=== PATIENT | male | born 1955 | race Caucasian/White ===

== ENCOUNTER → 2019-06-10 | Outpatient (CLI) | payer OTHER | END | disposition home or self-care (01) | LOC: PLD 12:32 → LAB SHORT 12:32 | DX: D22.5 Melanocytic nevi of trunk (principal) | CPT/HCPCS: 88305 ==

== ENCOUNTER 2019-12-17 09:17 | Inpatient (IN) | payer OTHER ==
[~2019-12-17] VITALS: Ht 175.3 cm; Wt 115.0 kg
[2019-12-17 11:05] LABS: Alanine Aminotransfer (ALT/SGP 28 U/L (12-78); Albumin/Globulin Ratio 1.3 (0.8-1.8); Alk Phos 39 U/L (50-136); Anion Gap 7 mmol/L (6-16); Aspartate Aminotrans (AST/SGOT 15 U/L (12-37); Bilirubin, Total 0.7 mg/dL (0.1-1.0); Blood Urea Nitrogen 11 mg/dL (8-24); CO2, Blood 26 mmol/L (21-32); Calcium, Blood 9.1 mg/dL (8.5-10.1); Chloride, Blood 110 mmol/L (98-108); Creatinine, Blood 0.92 mg/dL (0.60-1.20); Glomerular Filtration Rate >60 (60-); Glucose, Blood 114 mg/dL (70-99); Potassium, Blood 3.6 mmol/L (3.5-5.5); Sodium, Blood 143 mmol/L (136-145); Troponin I 0.054 ng/mL (0.000-0.040)
[2019-12-17 12:33] LABS: PCO2 Arterial 40.3 mmHg (35-45); PO2 Arterial 67.1 mmHg (80-100); pH Blood Arterial 7.38 (7.35-7.45)
[2019-12-17] MEDS ORDERED: Vitamin D2000 UNIT PO (13:21)
[2019-12-17] MEDS ORDERED: AMLO10 PO (13:21)
[2019-12-17] MEDS ORDERED: LOSARTAN POTAS100 MG PO (13:21)
[2019-12-17] MEDS ORDERED: OMEP20ER PO (13:21)
[2019-12-17] MEDS ORDERED: Crestor20 MG PO (13:22)
[2019-12-17] MEDS ORDERED: Coreg12.5 MG PO (13:22)
[2019-12-17] MEDS ORDERED: CLOP75 PO (13:22)
[2019-12-17] MEDS ORDERED: STIOLTO RESPIMAT4 G1 INH (13:22)
[2019-12-17] MEDS ORDERED: AMIT10 PO (13:23)
[2019-12-17] MEDS ORDERED: QVAR REDIHALE10.6 G2 INH (13:23)
[2019-12-17] MEDS ORDERED: Aspirin EC81 MG PO (13:23)
[2019-12-17 15:01] LABS: BASOPHILS ABSOLUTE AUTO 0.04 K/mm3 (0.00-0.23); BASOPHILS PERCENT AUTO 1 % (0-2); EOSINOPHILS PERCENT AUTO 8 % (0-6); Hematocrit 41.7 % (37.0-53.0); Hemoglobin 14.8 g/dL (13.5-17.5); IMMATURE GRAN ABSOLUTE AUTO 0.01 K/mm3 (0.00-0.10); IMMATURE GRAN PERCENT AUTO 0 % (0-1); LYMPHOCYTES ABSOLUTE AUTO 1.53 K/mm3 (0.84-5.20); LYMPHOCYTES PERCENT AUTO 23 % (21-46); MONOCYTES ABSOLUTE AUTO 0.57 K/mm3 (0.16-1.47); MONOCYTES PERCENT AUTO 9 % (4-13); Mean Corpuscular HGB 32.9 pg (26.0-34.0); Mean Corpuscular HGB Conc 35.5 g/dL (31.5-36.5); Mean Corpuscular Volume 93 fL (80-100); Mean Platelet Volume 9.8 fL (9.1-12.4); NEUTROPHILS ABSOLUTE AUTO 3.89 K/mm3 (1.96-9.15); NEUTROPHILS PERCENT AUTO 60 % (41-73); Platelet Count 151 K/mm3 (150-400); RDW Coefficient Variation 12.2 % (11.7-14.2); RDW Standard Deviation 41.1 fL (35.1-46.3); White Blood Cell Count 6.54 K/mm3 (4.00-11.30)
[2019-12-17 15:02] LABS: International Normalized Ratio 0.96; Prothrombin Time Results 10.3 Sec (9.7-11.5)
[2019-12-17] MEDS ORDERED: IPRAT-ALBUT 0.5-3 ML INH (15:21)
[2019-12-17] MEDS ORDERED: STIOLTO RESPIMAT4 G1 (15:22)
[2019-12-17] MEDS ORDERED: QVAR REDIHALE10.6 G2 (15:22)
--- NOTE | 2019-12-17 17:00 | NUR ---
echocardiogram completed
--- NOTE | 2019-12-17 18:35 | NUR ---
SHIFT NOTE PT ARRIVED THIS AFTERNOON FROM ER WITH CHEST PRESSURE. PT RECIEVED NITRO IN ER X2, WHICH NEARLY RESOLVED HIS PAIN BUT HAD CAUSED HYPOTENSION. PT ARRIVES A/O X4, ANSWERING QUESTIONS APPOPRIATELY IN FULL SENTENCES. VSS. PT IS MEDICATED ON ARRIVAL PER EMAR. SKIN PWD AND INTACT. PT STS THAT PAIN BEGAN AFTER SEVERE BOUT OF SOB, REPORTS THAT SOB AND CP HAVE BEEN ITNERMITTENT FOR THE LAST 7+ DAYS. PT WITH HX OF STENTS PLACEMENT X3. DR CRUZ HAS BEEN IN TO SEE PT, THERE WILL NOT BE A CARDIO CONSULT UNTIL AFTER REPEAT TROPONINS HAVE BEEN OBTAINED PER DR ALEXANDER, OBSERVE PT UNTIL THEN
--- NOTE | 2019-12-17 20:29 | NUR ---
UPDATE DR ANN NOTIFIED OF PATIENT'S 09/03 CHEST PAIN AND PATIENT'S REQUEST FOR BOWEL CARE. ORDERS RECEIVED.
[2019-12-17 23:13] LABS: Adenovirus Not Detected (NOT DETECT); Bordetella pertussis Not Detected (NOT DETECT); Chlamydophila pneumoniae Not Detected (NOT DETECT); Coronavirus 229E Not Detected (NOT DETECT); Coronavirus HKU1 Not Detected (NOT DETECT); Coronavirus NL63 Not Detected (NOT DETECT); Coronavirus OC43 Not Detected (NOT DETECT); Human Metapneumovirus Not Detected (NOT DETECT); Human Rhinovirus/Enterovirus Not Detected (NOT DETECT); Influenza A/2009-H1 Not Detected (NOT DETECT); Influenza A/H1 Not Detected (NOT DETECT); Influenza A/H3 Not Detected (NOT DETECT); Influenza B Not Detected (NOT DETECT); Mycoplasma pneumoniae Not Detected (NOT DETECT); Parainfluenza Virus 1 Not Detected (NOT DETECT); Parainfluenza Virus 2 Not Detected (NOT DETECT); Parainfluenza Virus 3 Not Detected (NOT DETECT); Parainfluenza Virus 4 Not Detected (NOT DETECT); Respiratory Syncytial Virus Not Detected (NOT DETECT); SARS-Cov-2 (COVID-19), BioFire Not Detected (NOT DETECT)
[2019-12-18 04:30] LABS: BASOPHILS PERCENT AUTO 0 % (0-2); EOSINOPHILS PERCENT AUTO 0 % (0-6); Hematocrit 41.5 % (37.0-53.0); Hemoglobin 14.5 g/dL (13.5-17.5); IMMATURE GRAN ABSOLUTE AUTO 0.01 K/mm3 (0.00-0.10); IMMATURE GRAN PERCENT AUTO 0 % (0-1); LYMPHOCYTES ABSOLUTE AUTO 0.56 K/mm3 (0.84-5.20); LYMPHOCYTES PERCENT AUTO 10 % (21-46); MONOCYTES ABSOLUTE AUTO 0.05 K/mm3 (0.16-1.47); MONOCYTES PERCENT AUTO 1 % (4-13); Mean Corpuscular HGB 32.4 pg (26.0-34.0); Mean Corpuscular HGB Conc 34.9 g/dL (31.5-36.5); Mean Corpuscular Volume 93 fL (80-100); NEUTROPHILS ABSOLUTE AUTO 5.13 K/mm3 (1.96-9.15); NEUTROPHILS PERCENT AUTO 89 % (41-73); Platelet Count 151 K/mm3 (150-400); RDW Coefficient Variation 12.1 % (11.7-14.2); RDW Standard Deviation 41.1 fL (35.1-46.3); Red Blood Cell Count 4.47 M/mm3 (4.30-5.90); White Blood Cell Count 5.75 K/mm3 (4.00-11.30)
[2019-12-18 04:50] LABS: Alanine Aminotransfer (ALT/SGP 26 U/L (12-78); Albumin, Blood 3.9 g/dL (3.4-5.0); Albumin/Globulin Ratio 1.3 (0.8-1.8); Alk Phos 40 U/L (50-136); Anion Gap 4 mmol/L (6-16); Aspartate Aminotrans (AST/SGOT 8 U/L (12-37); Bilirubin, Total 0.7 mg/dL (0.1-1.0); Blood Urea Nitrogen 13 mg/dL (8-24); Bun/Creatinine Ratio 15.2 (12.0-20.0); CO2, Blood 28 mmol/L (21-32); Calcium, Blood 9.4 mg/dL (8.5-10.1); Chloride, Blood 111 mmol/L (98-108); Creatinine, Blood 0.85 mg/dL (0.60-1.20); Globulin, Blood 3.1 g/dL (2.2-4.0); Glomerular Filtration Rate >60 (60-); Glucose, Blood 144 mg/dL (70-99); Magnesium, Blood 2.1 mg/dL (1.6-2.4); Phosphorus, Blood 1.7 mg/dL (2.5-4.9); Potassium, Blood 4.2 mmol/L (3.5-5.5); Sodium, Blood 143 mmol/L (136-145)
--- NOTE | 2019-12-18 05:40 | NUR ---
SHIFT SUMMARY PT SLEPT T/O SHIFT. PT ALERT AND ORIENTED X 4. PT REPORTS PAIN IN THE ABDOMEN AND CHEST. PHYSICIAN NOTIFIED OF PAIN. PAIN MEDICATIONS PRESCRIBED. PT REFUSED. PT FELT THOUGH PAIN IN ABDOMEN WAS D/T CONSTIPATION. PHYSICIAN NOTIFIED. PT PRESCRIBED BOWEL CARE REGIMEN. PT DID NOT HAVE BM T/O SHIFT. BP STABLE. HR STABLE. WILL CONTINUE TO MONITOR UNTIL REPORT GIVEN TO DAYSHIFT RN.
--- NOTE | 2019-12-18 18:23 | NUR ---
SUMMARY: NO ACUTE CHANGE TODAY. VSS, NO CHANGE IN TELE. PT HAS DENIED CHEST PAIN, REPORTS "FLUTTERS" AT TIMES. REPORTS PRESSURE AT ABDMD AWARE.BOWEL CARE AND PRUNE JUICE GIVEN. NO BM TODAY. PT IS A/O, INDEP IN ROOM. POSSIBLE DISCHARGE TOMORROW. WILL PASS REPORT TO FAUSTINA RN.
[2019-12-19 04:56] LABS: BASOPHILS ABSOLUTE AUTO 0.01 K/mm3 (0.00-0.23); BASOPHILS PERCENT AUTO 0 % (0-2); EOSINOPHILS PERCENT AUTO 0 % (0-6); Hematocrit 41.4 % (37.0-53.0); Hemoglobin 14.5 g/dL (13.5-17.5); IMMATURE GRAN ABSOLUTE AUTO 0.04 K/mm3 (0.00-0.10); IMMATURE GRAN PERCENT AUTO 0 % (0-1); LYMPHOCYTES ABSOLUTE AUTO 0.71 K/mm3 (0.84-5.20); LYMPHOCYTES PERCENT AUTO 7 % (21-46); MONOCYTES ABSOLUTE AUTO 0.23 K/mm3 (0.16-1.47); MONOCYTES PERCENT AUTO 2 % (4-13); Mean Corpuscular HGB 32.3 pg (26.0-34.0); Mean Corpuscular Volume 92 fL (80-100); Mean Platelet Volume 9.7 fL (9.1-12.4); NEUTROPHILS PERCENT AUTO 91 % (41-73); Platelet Count 154 K/mm3 (150-400); RDW Coefficient Variation 12.2 % (11.7-14.2); RDW Standard Deviation 41.2 fL (35.1-46.3); Red Blood Cell Count 4.49 M/mm3 (4.30-5.90); White Blood Cell Count 10.49 K/mm3 (4.00-11.30)
[2019-12-19 05:15] LABS: Anion Gap 6 mmol/L (6-16); Blood Urea Nitrogen 14 mg/dL (8-24); Bun/Creatinine Ratio 16.1 (12.0-20.0); CO2, Blood 28 mmol/L (21-32); Calcium, Blood 9.4 mg/dL (8.5-10.1); Chloride, Blood 109 mmol/L (98-108); Creatinine, Blood 0.87 mg/dL (0.60-1.20); Glomerular Filtration Rate >60 (60-); Glucose, Blood 161 mg/dL (70-99); Potassium, Blood 4.1 mmol/L (3.5-5.5); Sodium, Blood 143 mmol/L (136-145)
--- NOTE | 2019-12-19 06:14 | NUR ---
shift summary pt rested through night ao room air abd distention - given miralax x2 - no bm. pt feels distended and like he has to go, but cant get relief. passing gas, no nausea. encouraged ambulation. voiding to urinal no c/o pain vss call light within reach, bed in lowest position. will continue to monitor.
--- NOTE | 2019-12-19 08:00 | NUR ---
pt laying in bed eating breakfast, a/ox3, pleasant and cooperative with care, follows commands well, denies pain, just some pressure in his abd, states no bm for 5 days, lungs are clear in upper [place], dim with exp wheezing to bases, resp even and unlabored, no cough noted, but pt reports occ cough with clear phlem, hrr, tele in place running st per monitor, see strip, no edema noted, ppp+2, cap refill <3sec, vs stable, afebrile, iv site is clear and patent, btx4, abd large round firm, voids via urinal, skin c/w/d, pilo alexander, call light in reach, started him on mag citrate, will give enema if no results.
--- NOTE | 2019-12-19 10:30 | NUR ---
pt had no results from mag citrate, gave fleets enema, asked him to lay with enema in for a couple minutes before getting up to br. tolerated well, call light in reach.
[2019-12-19] MEDS ORDERED: METO25ER PO (12:08)
[2019-12-19] MEDS ORDERED: AZIT500 PO (12:09)
[2019-12-19] MEDS ORDERED: DELTASONE20 MG PO (12:10)
--- NOTE | 2019-12-19 14:00 | NUR ---
PT HAS HAD SEVERAL BM'S, HE IS BEING DISCHARGED TO HOME, WENT OVER HIS INSTRUCTIONS, HE VERBALIZED UNDERSTANDING, NEW MEDS WERE CALLED INTO [facility] IN [facility], IV REMOVED INTACT, LEFT VIA WHEELCHAIR WITH CURRENCY MACHINE OPERATOR IN ATTENDENCE WITH ALL HIS BELONGINGS.
== END 2019-12-19 14:24 | disposition home or self-care (01) | DRG 189 ==
LOC: ER 09:17 → PCU 12:28
PROVIDERS: Family Medicine; Physician Assistant; ADMIT Hospitalist
DX: J96.01 Acute respiratory failure with hypoxia (principal); J44.1 Chronic obstructive pulmonary disease with (acute) exacerbation; I25.10 Atherosclerotic heart disease of native coronary artery without angina pectoris; Z95.5 Presence of coronary angioplasty implant and graft; G47.33 Obstructive sleep apnea (adult) (pediatric); E78.5 Hyperlipidemia, unspecified; K59.00 Constipation, unspecified; Z87.891 Personal history of nicotine dependence; R79.89 Other specified abnormal findings of blood chemistry; I50.9 Heart failure, unspecified; I11.0 Hypertensive heart disease with heart failure
CPT/HCPCS: 0202U; 36415; 36600; 71045; 80048; 80053; 82803; 83735; 83880; 84100; 84484; 85025; 85610; 93005; 93010; 93306; 94640; 94760; 99285-25; A9270-GY; J0696; J1650; J2930; J7512

== ENCOUNTER 2019-12-25 11:16 | Emergency (ER) | payer OTHER ==
[~2019-12-25] VITALS: Ht 175.3 cm; Wt 123.8 kg
[~2019-12-25 11:16] MED LIST: AMIT10 PO; AMLO10 PO; AZIT500 PO; Aspirin EC81 MG PO; CLOP75 PO; Coreg12.5 MG PO; Crestor20 MG PO; DELTASONE20 MG PO; IPRAT-ALBUT 0.5-3 ML INH; LOSARTAN POTAS100 MG PO; METO25ER PO; OMEP20ER PO; QVAR REDIHALE10.6 G2; QVAR REDIHALE10.6 G2 INH; STIOLTO RESPIMAT4 G1; STIOLTO RESPIMAT4 G1 INH; Vitamin D2000 UNIT PO
[2019-12-25 11:53] LABS: BASOPHILS ABSOLUTE AUTO 0.02 K/mm3 (0.00-0.23); BASOPHILS PERCENT AUTO 0 % (0-2); EOSINOPHILS ABSOLUTE AUTO 0.29 K/mm3 (0.00-0.68); EOSINOPHILS PERCENT AUTO 4 % (0-6); Hemoglobin 15.1 g/dL (13.5-17.5); IMMATURE GRAN ABSOLUTE AUTO 0.05 K/mm3 (0.00-0.10); IMMATURE GRAN PERCENT AUTO 1 % (0-1); LYMPHOCYTES ABSOLUTE AUTO 1.49 K/mm3 (0.84-5.20); LYMPHOCYTES PERCENT AUTO 19 % (21-46); MONOCYTES ABSOLUTE AUTO 0.67 K/mm3 (0.16-1.47); MONOCYTES PERCENT AUTO 8 % (4-13); Mean Corpuscular HGB 32.2 pg (26.0-34.0); Mean Corpuscular HGB Conc 35.1 g/dL (31.5-36.5); Mean Corpuscular Volume 92 fL (80-100); Mean Platelet Volume 9.6 fL (9.1-12.4); NEUTROPHILS ABSOLUTE AUTO 5.47 K/mm3 (1.96-9.15); NEUTROPHILS PERCENT AUTO 69 % (41-73); Platelet Count 152 K/mm3 (150-400); RDW Coefficient Variation 12.3 % (11.7-14.2); RDW Standard Deviation 41.1 fL (35.1-46.3); Red Blood Cell Count 4.69 M/mm3 (4.30-5.90); White Blood Cell Count 7.99 K/mm3 (4.00-11.30)
[2019-12-25 12:17] LABS: Alanine Aminotransfer (ALT/SGP 26 U/L (12-78); Albumin, Blood 3.7 g/dL (3.4-5.0); Albumin/Globulin Ratio 1.3 (0.8-1.8); Alk Phos 41 U/L (50-136); Anion Gap 9 mmol/L (6-16); Aspartate Aminotrans (AST/SGOT 14 U/L (12-37); Bilirubin, Total 0.6 mg/dL (0.1-1.0); Blood Urea Nitrogen 10 mg/dL (8-24); CO2, Blood 24 mmol/L (21-32); Calcium, Blood 8.7 mg/dL (8.5-10.1); Chloride, Blood 111 mmol/L (98-108); Creatinine, Blood 0.84 mg/dL (0.60-1.20); Globulin, Blood 2.8 g/dL (2.2-4.0); Glomerular Filtration Rate >60 (60-); Glucose, Blood 94 mg/dL (70-99); Potassium, Blood 3.2 mmol/L (3.5-5.5); Sodium, Blood 144 mmol/L (136-145); Total Protein, Blood 6.5 g/dL (6.4-8.2); Troponin I 0.034 ng/mL (0.000-0.040)
== END 2019-12-25 12:50 | disposition home or self-care (01) ==
LOC: ER 11:16
PROVIDERS: Emergency Medicine
DX: R07.89 Other chest pain (principal); J44.9 Chronic obstructive pulmonary disease, unspecified; I25.10 Atherosclerotic heart disease of native coronary artery without angina pectoris; I50.9 Heart failure, unspecified; Z88.2 Allergy status to sulfonamides; Z88.6 Allergy status to analgesic agent; Z88.1 Allergy status to other antibiotic agents; Z88.8 Allergy status to other drugs, medicaments and biological substances; Z79.02 Long term (current) use of antithrombotics/antiplatelets; Z79.82 Long term (current) use of aspirin; Z79.52 Long term (current) use of systemic steroids; Z79.899 Other long term (current) drug therapy; Z87.891 Personal history of nicotine dependence
CPT/HCPCS: 36415; 71045; 80053; 83880; 84484; 85025; 93005; 93010; 99285-25

== ENCOUNTER 2020-06-30 05:41 | Day surgery (SDC) | payer OTHER ==
[~2020-06-30] VITALS: Ht 180.3 cm; Wt 124.0 kg
[~2020-06-30 05:41] MED LIST changes: +ALBU90OI INH; +ARNUITY ELLIP100 MCG; +FURO20 PO
--- NOTE | 2020-06-30 10:31 | NUR ---
PT C/O WHEEZING AND CHEST TIGHTNESS. ABLUTEROL NEB GIVEN. EKG DONE.
--- NOTE | 2020-06-30 10:46 | NUR ---
PT REPORTS BREATHING BETTER POST BREATHING TX. LASIX 20MG IVP AND SOLU CORTEF 100MG IVP GIVEN. LUNG SOUNDS CLEAR T/O POST BREATHING TX.
--- NOTE | 2020-06-30 11:40 | NUR ---
LUNCH TRAY SERVED. PATINET WAS RECLINED IN CHAIR RESTING WITH EYES CLOSED. SATURATION ON ROOM AIR WAS 97%. CALL LIGHT IN REACH.
--- NOTE | 2020-06-30 12:00 | NUR ---
8CC AIR REMOVED FROM R WRIST TR BAND. -BLEEDING OR SWELLING.
--- NOTE | 2020-06-30 12:30 | NUR ---
2ND ALBUTEROL NEB GIVEN. LS DIMINISHED T/O. NO WHEEZING. PT STATES IS BREATHING FEELS ABOUT NORMAL.
--- NOTE | 2020-06-30 12:49 | NUR ---
R WRIST TR BAND REMOVED. PUNCTURE AREA CLEANED /C NS AND CLOTH DOT DRSG PLACED. -BLEEDING OR SWELLING. R WRIST SPLINT REAPPLIED. PT VERBALIZED UNDERSTANDING OF WRITTEN AND VERBAL D/C INST. IV REMOVED.
--- NOTE | 2020-06-30 12:51 | NUR ---
ROSALIA LOPEZ T/O. PT REPORTS NO ISSUES /C HIS BREATHING AT THIS TIME.
== END 2020-06-30 13:15 | disposition home or self-care (01) ==
LOC: MHTC 05:41
DX: I25.119 Atherosclerotic heart disease of native coronary artery with unspecified angina pectoris (principal); T82.855A Stenosis of coronary artery stent, initial encounter; E66.9 Obesity, unspecified; J44.9 Chronic obstructive pulmonary disease, unspecified; K21.9 Gastro-esophageal reflux disease without esophagitis; M19.90 Unspecified osteoarthritis, unspecified site; M10.9 Gout, unspecified; I11.0 Hypertensive heart disease with heart failure; I50.9 Heart failure, unspecified; G47.33 Obstructive sleep apnea (adult) (pediatric); E78.00 Pure hypercholesterolemia, unspecified; Y71.2 Prosthetic and other implants, materials and accessory cardiovascular devices associated with adverse incidents; Z68.39 Body mass index [BMI] 39.0-39.9, adult; Z87.891 Personal history of nicotine dependence; Z79.02 Long term (current) use of antithrombotics/antiplatelets; Z88.8 Allergy status to other drugs, medicaments and biological substances; Z88.6 Allergy status to analgesic agent; Z88.2 Allergy status to sulfonamides
CPT/HCPCS: 76937; 85347; 93005; 93010; 93454; 93571; 93572; 99152; 99153; C1769; C1874; C1887; C1894; C9600; J1644; J1720; J1940; J2250; J3010; J7030; J7040; J7050; Q9967

== ENCOUNTER 2021-04-22 17:34 | Emergency (ER) | payer OTHER ==
[~2021-04-22] VITALS: Ht 177.8 cm; Wt 128.4 kg
== END 2021-04-22 19:06 | disposition home or self-care (01) ==
LOC: ER 17:34
DX: H05.223 Edema of bilateral orbit (principal); J44.9 Chronic obstructive pulmonary disease, unspecified; I11.0 Hypertensive heart disease with heart failure; I50.9 Heart failure, unspecified; Z87.891 Personal history of nicotine dependence; Z88.2 Allergy status to sulfonamides; Z79.899 Other long term (current) drug therapy
CPT/HCPCS: 99282

== ENCOUNTER 2021-08-04 11:00 | Emergency (ER) | payer OTHER ==
[~2021-08-04] VITALS: Ht 180.3 cm; Wt 127.5 kg
[2021-08-04 12:33] LABS: BASOPHILS ABSOLUTE AUTO 0.04 K/mm3 (0.00-0.23); BASOPHILS PERCENT AUTO 1 % (0-2); EOSINOPHILS ABSOLUTE AUTO 0.12 K/mm3 (0.00-0.68); EOSINOPHILS PERCENT AUTO 2 % (0-6); Hematocrit 45.7 % (37.0-53.0); Hemoglobin 15.9 g/dL (13.5-17.5); IMMATURE GRAN ABSOLUTE AUTO 0.02 K/mm3 (0.00-0.10); IMMATURE GRAN PERCENT AUTO 0 % (0-1); LYMPHOCYTES ABSOLUTE AUTO 0.83 K/mm3 (0.84-5.20); LYMPHOCYTES PERCENT AUTO 11 % (21-46); MONOCYTES ABSOLUTE AUTO 0.46 K/mm3 (0.16-1.47); MONOCYTES PERCENT AUTO 6 % (4-13); Mean Corpuscular HGB 33.1 pg (26.0-34.0); Mean Corpuscular HGB Conc 34.8 g/dL (31.5-36.5); Mean Corpuscular Volume 95 fL (80-100); Mean Platelet Volume 9.4 fL (9.1-12.4); NEUTROPHILS ABSOLUTE AUTO 6.47 K/mm3 (1.96-9.15); NEUTROPHILS PERCENT AUTO 81 % (41-73); Platelet Count 151 K/mm3 (150-400); RDW Coefficient Variation 12.3 % (11.7-14.2); RDW Standard Deviation 42.8 fL (35.1-46.3); Red Blood Cell Count 4.81 M/mm3 (4.30-5.90); White Blood Cell Count 7.94 K/mm3 (4.00-11.30)
[2021-08-04 12:53] LABS: Albumin, Blood 4.2 g/dL (3.4-5.0); Albumin/Globulin Ratio 1.3 (0.8-1.8); Bilirubin, Total 1.2 mg/dL (0.1-1.0); Bun/Creatinine Ratio 10.2 (12.0-20.0); Calcium, Blood 9.3 mg/dL (8.5-10.1); Creatinine, Blood 1.18 mg/dL (0.60-1.20); Globulin, Blood 3.3 g/dL (2.2-4.0); Potassium, Blood 4.1 mmol/L (3.5-5.5); Total Protein, Blood 7.5 g/dL (6.4-8.2)
[2021-08-04] MEDS ORDERED: AMLO10 PO (14:51)
[2021-08-04] MEDS ORDERED: Aspir 8181 MG PO (14:51)
[2021-08-04] MEDS ORDERED: LOSA25 PO (14:53)
[2021-08-04] MEDS ORDERED: MONT10T PO (14:53)
[2021-08-04] MEDS ORDERED: ONDA4ODT MM (14:54)
[2021-08-04] MEDS ORDERED: OMEP20ER PO (14:54)
[2021-08-04] MEDS ORDERED: NITR.4SL SL (14:54)
[2021-08-04] MEDS ORDERED: Deltasone 10 mg10 MG (14:55)
[2021-08-04] MEDS ORDERED: Triamcinolone A15 G3 (14:56)
== END 2021-08-04 15:19 | disposition home or self-care (01) ==
LOC: ER 11:00
PROVIDERS: Emergency Medicine
DX: R06.02 Shortness of breath (principal); R14.0 Abdominal distension (gaseous); R42 Dizziness and giddiness; R05.9 Cough, unspecified; J44.9 Chronic obstructive pulmonary disease, unspecified; Z87.891 Personal history of nicotine dependence; Z79.02 Long term (current) use of antithrombotics/antiplatelets; Z79.899 Other long term (current) drug therapy; Z79.82 Long term (current) use of aspirin; Z88.1 Allergy status to other antibiotic agents; Z88.2 Allergy status to sulfonamides; Z88.8 Allergy status to other drugs, medicaments and biological substances
CPT/HCPCS: 71046; 80053; 84484; 85025; 93005; 93010; 99284-25; A9270

== ENCOUNTER 2021-12-15 06:41 | Observation (INO) | payer MEDICARE, OTHER ==
[~2021-12-15] VITALS: Ht 180.3 cm; Wt 118.9 kg
[~2021-12-15 06:41] MED LIST changes: +Amoxicillin875 MG PO; +Aspir 8181 MG PO; +BENZ100A PO; +Deltasone 10 mg10 MG; +LOSA25 PO; +MONT10T PO; +NITR.4SL SL; +ONDA4ODT MM; +Prednisone20 MG PO; +Triamcinolone A15 G3
[2021-12-15 07:11] LABS: BASOPHILS ABSOLUTE AUTO 0.03 K/mm3 (0.00-0.23); BASOPHILS PERCENT AUTO 1 % (0-2); EOSINOPHILS ABSOLUTE AUTO 0.13 K/mm3 (0.00-0.68); EOSINOPHILS PERCENT AUTO 2 % (0-6); Hematocrit 41.3 % (37.0-53.0); Hemoglobin 14.7 g/dL (13.5-17.5); IMMATURE GRAN ABSOLUTE AUTO 0.02 K/mm3 (0.00-0.10); IMMATURE GRAN PERCENT AUTO 0 % (0-1); LYMPHOCYTES ABSOLUTE AUTO 0.71 K/mm3 (0.84-5.20); LYMPHOCYTES PERCENT AUTO 11 % (21-46); MONOCYTES ABSOLUTE AUTO 0.39 K/mm3 (0.16-1.47); MONOCYTES PERCENT AUTO 6 % (4-13); Mean Corpuscular HGB 32.5 pg (26.0-34.0); Mean Corpuscular HGB Conc 35.6 g/dL (31.5-36.5); Mean Corpuscular Volume 91 fL (80-100); NEUTROPHILS ABSOLUTE AUTO 5.31 K/mm3 (1.96-9.15); NEUTROPHILS PERCENT AUTO 81 % (41-73); Platelet Count 154 K/mm3 (150-400); RDW Coefficient Variation 12.2 % (11.7-14.2); RDW Standard Deviation 40.5 fL (35.1-46.3); Red Blood Cell Count 4.52 M/mm3 (4.30-5.90); White Blood Cell Count 6.59 K/mm3 (4.00-11.30)
[2021-12-15 07:26] LABS: Albumin, Blood 3.5 g/dL (3.4-5.0); Albumin/Globulin Ratio 1.2 (0.8-1.8); Bilirubin, Total 0.5 mg/dL (0.1-1.0); Bun/Creatinine Ratio 11.5 (12.0-20.0); Calcium, Blood 8.9 mg/dL (8.5-10.1); Creatinine, Blood 1.13 mg/dL (0.60-1.20); Globulin, Blood 2.8 g/dL (2.2-4.0); Total Protein, Blood 6.3 g/dL (6.4-8.2)
[2021-12-15 08:55] LABS: Influenza A, PCR NEGATIVE (NEGATIVE); Influenza B, PCR NEGATIVE (NEGATIVE); Resp Syncytial Virus, PCR NEGATIVE (NEGATIVE); SARS-Cov-2 (COVID-19) PCR, MMC NEGATIVE (NEGATIVE)
[2021-12-15] MEDS ORDERED: CLOP75 PO (11:04)
[2021-12-15] MEDS ORDERED: LOSA50 PO (11:05)
[2021-12-15 13:57] LABS: Anti-Xa UFH, PHA Monitoring <0.10 IU/mL; International Normalized Ratio 1.02; Prothrombin Time Results 10.7 Sec (9.7-11.5)
--- NOTE | 2021-12-15 18:10 | NUR ---
SHIFT SUMMARY PT UP FROM ED TO ROOM. PT ON TELE, COMFIRMED WITH HALL DIRECTORSR. MORRIS D/C'D IN ED, PT STARTED ON HEPARIN DRIP ON UNIT. PT REMAINS ON 2L NC, SPO2 REMAINS > 92%, OCCASIONAL SOB WITH EXERTION. NO C/O CP WHILE ON UNIT, WILL CONTINUE TO MONITOR. CALL LIGHT WITHIN REACH.
[2021-12-16 01:58] LABS: BASOPHILS PERCENT AUTO 0 % (0-2); EOSINOPHILS PERCENT AUTO 0 % (0-6); Hematocrit 40.1 % (37.0-53.0); Hemoglobin 14.5 g/dL (13.5-17.5); IMMATURE GRAN ABSOLUTE AUTO 0.02 K/mm3 (0.00-0.10); IMMATURE GRAN PERCENT AUTO 0 % (0-1); LYMPHOCYTES ABSOLUTE AUTO 0.51 K/mm3 (0.84-5.20); LYMPHOCYTES PERCENT AUTO 10 % (21-46); MONOCYTES ABSOLUTE AUTO 0.16 K/mm3 (0.16-1.47); MONOCYTES PERCENT AUTO 3 % (4-13); Mean Corpuscular HGB 32.8 pg (26.0-34.0); Mean Corpuscular HGB Conc 36.2 g/dL (31.5-36.5); Mean Corpuscular Volume 91 fL (80-100); Mean Platelet Volume 9.6 fL (9.1-12.4); NEUTROPHILS ABSOLUTE AUTO 4.49 K/mm3 (1.96-9.15); NEUTROPHILS PERCENT AUTO 87 % (41-73); Platelet Count 146 K/mm3 (150-400); RDW Coefficient Variation 12.2 % (11.7-14.2); RDW Standard Deviation 40.5 fL (35.1-46.3); Red Blood Cell Count 4.42 M/mm3 (4.30-5.90); White Blood Cell Count 5.18 K/mm3 (4.00-11.30)
[2021-12-16 02:15] LABS: Albumin, Blood 3.4 g/dL (3.4-5.0); Albumin/Globulin Ratio 1.1 (0.8-1.8); Bilirubin, Total 0.4 mg/dL (0.1-1.0); Calcium, Blood 9.4 mg/dL (8.5-10.1); Creatinine, Blood 0.86 mg/dL (0.60-1.20); Globulin, Blood 3.1 g/dL (2.2-4.0); Magnesium, Blood 2.3 mg/dL (1.6-2.4); Potassium, Blood 4.4 mmol/L (3.5-5.5); Total Protein, Blood 6.5 g/dL (6.4-8.2)
--- NOTE | 2021-12-16 04:18 | NUR ---
Pt A/Ox4 and call light appropriate. This shift patient had c/o pain in his chest. patient states "it's from coughing so hard." PRN vansruth pearles given. Pt remains on 2L of NC o2. Hep gtt continues to infuse. Around 0300 hep gtt was reduced to 14u/kg/hr. Sumi (GISELLA) witnessed the dosage change. No calls from telegraph printer mechanic this shift. pt had no other complaints during the shift. He is able to transfer independantly in his room.
[2021-12-16] MEDS ORDERED: XARELTO20 MG PO (11:28)
--- NOTE | 2021-12-16 14:50 | NUR ---
PATIENT A&OX4. PLEASANT AND COOPERATIVE WITH CARE. AMBULATES IN ROOM INDEPENDENTLY. USES CALL LIGHT APPROPRIATELY AND ABLE TO ADVOCATES FOR HIS NEEDS. PATIENT ON RA WITH SPO2 ABOVE 92%. LUNGS CLEAR T/O. ON TELE, NSR AT 86 BPM PER HEAT READERMARIYA LEONARDO. PATIENT REPORTS OF SMALL BM 12/15/21. DENIES N/V. DENIES CP/CHEST DISCOMFORT. PATIENT RECIEVED ALL SCHEDULED MEDICATION THIS SHIFT. VITAL SIGNS REVIEWED. RECIEVED BREATHING TREATMENT PER RT. PATIENT DISCHARGE HOME. DISCHARGE INSTRUCTIONS PACKET GIVEN TO PATIENT AT AROUND 1420. EDUCATE PATIENT REGARDING ADMITTING DIAGNOSIS, SIGN AND SYMPTOMS, TREATMENT AND NEW PRESCRIBED MEDICATIONS. PATIENT STATED UNDERSTANDING AND NO FURTHER QUESTIONS. RX WAS FAXED TO PATIENT PREFERRED PHARMACY ([facility]). IV'S DC'D. ALL PATIENT PERSONAL BELONGINGS WERE SENT HOME WITH THE PATIENT. PATIENT WAS TRANSPORTED VIA WHEELCHAIR BY BURGLAR ALARM MECHANIC STAFF TO PATIENT [facility].
== END 2021-12-16 14:40 | disposition home or self-care (01) ==
LOC: ER 06:41 → MEDS 06:42
PROVIDERS: Student in an Organized Health Care Education/Training Program; ADMIT Internal Medicine
DX: J96.01 Acute respiratory failure with hypoxia (principal); I48.91 Unspecified atrial fibrillation; I25.10 Atherosclerotic heart disease of native coronary artery without angina pectoris; Z95.5 Presence of coronary angioplasty implant and graft; J44.1 Chronic obstructive pulmonary disease with (acute) exacerbation; I50.9 Heart failure, unspecified; I11.0 Hypertensive heart disease with heart failure; K21.9 Gastro-esophageal reflux disease without esophagitis; Z91.198 Patient's noncompliance with other medical treatment and regimen for other reason; Z88.2 Allergy status to sulfonamides; Z88.5 Allergy status to narcotic agent; Z88.8 Allergy status to other drugs, medicaments and biological substances; I25.2 Old myocardial infarction; Z20.822 Contact with and (suspected) exposure to COVID-19
CPT/HCPCS: 0241U; 36415; 71046; 80053; 83735; 84484; 85025; 85520; 85610; 93005; 93010; 94640; 94644; 94664; 94760; A9270; G0378; J0456; J1644; J2405; J2920; J2930; J7030; J7050